=== PATIENT | male | born 1955 | race Caucasian/White ===

== ENCOUNTER 2023-08-28 11:04 | Observation (INO) ==
[~2023-08-28 11:04] MED LIST: Naloxone 0.4 mg VIAL 0.4 mg/ml 1 ml VIAL IV PRN; Ondansetron 4 mg VIAL 2 MG/ML 2 ml VIAL IV PRN; fentaNYL 100 mcg/2 ml 50 MCG/ML VIAL IV PRN
[2023-08-28] MEDS ORDERED: CEFTRIAXONE 1 GM/50 ML IV ONE (11:54)
[2023-08-28] MEDS ORDERED: D5W 2 GM/100 ML IV ONE (11:54)
[2023-08-28 12:56] LABS: Rapid COVID-19 Molecular Undetected (Undetected)
[2023-08-28] MEDS ORDERED: Midazolam 2 mg/2 ml VIAL 1 mg/ml 2 ml VIAL (2 mg) ONE (12:58)
[2023-08-28] MEDS ORDERED: fentaNYL 100 mcg/2 ml 50 MCG/ML VIAL ONE (12:58)
[2023-08-28] MEDS ORDERED: Propofol 10 MG/ML 20 ML BTL ONE ×3 (13:03→15:21)
[2023-08-28] MEDS ORDERED: Acetaminophen IV 1 GM/100ML 1,000 MG/100 ML BAG IV ONE (14:45)
[2023-08-28] MEDS ORDERED: Furosemide 20 mg/2 ml IV VIAL ONE (15:42)
[2023-08-28] MEDS: LACTATED RINGERS 1000 ML BAG IV SCH (17:50)
[2023-08-28] MEDS ORDERED: Albuterol HFA INHALER 8 gm MDI INH PRN (18:10)
[2023-08-28] MEDS: Gentamicin ADULT 140 MG in NS 0.9% 100 ml BAG 100 ML IVPB ONE (18:37)
[2023-08-28 18:59] LABS: Calcium 8.3 mg/dL (8.6-10.3); Creatinine, Serum 0.94 mg/dL (0.67-1.17); Potassium 4.1 mmol/L (3.5-5.0); eGFR CKD-EPI 87.2 (>60)
[2023-08-28] MEDS: Lactated Ringers 1000 ml BAG 1,000 ML IV SCH (19:08)
[2023-08-28] MEDS: Buffered Lidocaine 1% SYRIN 1 ml INTRADERM ONE (19:08)
[2023-08-28] MEDS: Mometasone/Formoter 200/5 MDI INH SCH (19:29)
[2023-08-28] MEDS: Amoxicillin/Clavul 250/125 TAB (Augmentin 250 TAB) PO SCH (20:00)
[2023-08-29] MEDS: cefTRIAXone 1 gm/50 mL D5W 1 GM/50 ML BAG IV ONE (06:33)
[2023-08-29] MEDS: Fluticasone NASAL SPRAY 50MCG 16 gm SPRAY BTL INTRANASAL SCH (09:33)
[2023-08-29 10:13] VITALS: BP 114/73
== END 2023-08-29 11:10 | disposition home or self-care (01) ==
LOC: OR 11:04 → SSU 11:04
PROVIDERS: ADMIT Urology; ATTEND Urology